=== PATIENT | female | born 1995 | race Caucasian/White ===

== ENCOUNTER 2024-03-30 21:03 | Outpatient (CLI) | payer OTHER, MEDICAID, SELFPAY ==
[2024-03-30 21:27] LABS: Appearance Urine UA CLEAR; Bilirubin Urine UA NEGATIVE (NEGATIVE); Color Urine UA YELLOW; Glucose Urine UA NEGATIVE (Negative); Ketones Urine UA 2+ (NEGATIVE); Leukocyte Esterase Urine UA 2+ (NEGATIVE); Nitrite Urine UA NEGATIVE (Negative); Occult Blood Urine UA NEGATIVE (Negative); Protein Urine UA NEGATIVE (Negative); Specific Gravity Urine UA <=1.005 (1.000-1.035); Urobilinogen Urine UA 0.2 E.U./dL (0.2)
[2024-03-30 21:31] LABS: pH Urine UA 5.5 (4.5-8.0)
[2024-03-30 21:36] LABS: Bacteria Urine Few (2-10); Culture Indicated Urine Specimen Cultured; RBC Urine None Seen (0-5/HPF); Squamous Epithelial Cell Urine 1-5 /HPF (0-5/HPF); Urine Volume 10mL (spun); WBC Urine 1-5/HPF (0-5/HPF)
== END 2024-03-30 22:20 | disposition home or self-care (01) ==
LOC: LABOR 21:06 → OB 04-01 10:27
PROVIDERS: Referring Provider Student in an Organized Health Care Education/Training Program; Visit Provider Student in an Organized Health Care Education/Training Program
DX: O26.893 Other specified pregnancy related conditions, third trimester (principal); R10.30 Lower abdominal pain, unspecified; M54.9 Dorsalgia, unspecified; Z3A.32 32 weeks gestation of pregnancy
CPT/HCPCS: 59025; 81001; 87086; G0378; G0379

== ENCOUNTER → 2024-04-21 08:38 | Outpatient (CLI) | payer OTHER, MEDICAID, SELFPAY ==
--- NOTE | 2024-04-21 08:40 | DI.US.S_ITS ---
PROCEDURE: US OB LIMITED INDICATIONS: OBESITY - GROWTH OUTSIDE/PRIOR DATING DATA: Last menstrual period (LMP): 08/06/2023. LMP-based estimated date of delivery (TRAVIS): 05/12/2024 First dating scan (date and location): 11/01/2023. Estimated date of delivery (TRAVIS) from first dating scan: 05/25/2024. TECHNIQUE: Real-time scanning was performed of the fetus, with image documentation. COMPARISON: Outside imaging not available for review. FINDINGS: A single living intrauterine gestation is present. Presentation: Vertex. Placenta: Placental position is posterior. Internal os area was not well seen. Amniotic fluid index: 28.2 cm, normal range is 5-24 cm. Single deepest vertical pocket is 9.6 cm. heart rate: 157 beats per minute. Maternal cervical canal: Not imaged Head circumference is 31.4 cm, 35 weeks and 2 days. BPD is 8.8 cm, 35 weeks and 3 days. Abdominal circumference is 31.4 cm, 35 weeks and 2 days Femur length is 6.4 cm, 33 weeks and 1 day Clinically estimated gestational age: 35 weeks and 1 day Estimated gestational age from initial scan: 34 weeks and 6 days EFW is 35th percentile, 2501 g. IMPRESSION: Living intrauterine gestation in vertex presentation. Overall EFW within normal limits at the 35th percentile using the provided outside clinical dating. Polyhydramnios, TALIB of 28.2. Please note that the prior outside ultrasound is not available for review. Dictated by: Jermaine Hicks M.D. on 04/21/2024 at 13:25 Approved by: Jermaine Hicks M.D. on 04/21/2024 at 13:29
== END ==
PROVIDERS: Referring Provider Student in an Organized Health Care Education/Training Program; Visit Provider Student in an Organized Health Care Education/Training Program
DX: O99.213 Obesity complicating pregnancy, third trimester (principal); O40.3XX0 Polyhydramnios, third trimester, not applicable or unspecified; Z3A.34 34 weeks gestation of pregnancy
CPT/HCPCS: 76815

== ENCOUNTER → 2024-05-01 13:25 | Outpatient (CLI) | payer OTHER, MEDICAID, SELFPAY ==
[2024-05-02 11:09] LABS: Strep Grp B PCR NEG for Grp B Strep
== END ==
PROVIDERS: Visit Provider Student in an Organized Health Care Education/Training Program
DX: Z34.03 Encounter for supervision of normal first pregnancy, third trimester (principal); Z3A.36 36 weeks gestation of pregnancy
CPT/HCPCS: 87653

== ENCOUNTER 2024-05-01 13:54 | Outpatient (CLI) | payer OTHER, MEDICAID, SELFPAY | END 2024-05-01 15:12 | disposition home or self-care (01) | LOC: LABOR 15:15 → OB 05-04 11:15 | PROVIDERS: Referring Provider Student in an Organized Health Care Education/Training Program; Visit Provider Student in an Organized Health Care Education/Training Program | DX: Z34.03 Encounter for supervision of normal first pregnancy, third trimester (principal); Z3A.36 36 weeks gestation of pregnancy | CPT/HCPCS: 59025; 87653; G0378; G0379 ==

== ENCOUNTER 2024-05-08 12:51 | Outpatient (CLI) | payer OTHER, MEDICAID, SELFPAY | END 2024-05-08 13:30 | disposition home or self-care (01) | LOC: LABOR 12:59 → OB 05-11 06:13 | PROVIDERS: Referring Provider Student in an Organized Health Care Education/Training Program; Visit Provider Student in an Organized Health Care Education/Training Program | DX: O77.0 Labor and delivery complicated by meconium in amniotic fluid (principal); Z3A.37 37 weeks gestation of pregnancy | CPT/HCPCS: 59025; G0378; G0379 ==

== ENCOUNTER 2024-05-15 15:15 | Outpatient (CLI) | payer OTHER, MEDICAID, SELFPAY ==
--- NOTE | 2024-05-15 15:25 | DI.US.S_ITS ---
PROCEDURE: US OB BIOPHYSICAL PROFILE INDICATIONS: POLYHYDRAMINOS OUTSIDE/PRIOR DATING DATA: Last menstrual period (LMP): 08/06/2023. LMP-based estimated date of delivery (TRAVIS): 05/12/2024. First dating scan (date and location): 11/01/2023. Estimated date of delivery (TRAVIS) from first dating scan: 05/25/2024. The calculations are made using the ultrasound TRAVIS of 05/25/2024. TECHNIQUE: Real-time scanning was performed of the fetus, with image documentation. Biophysical profile was also obtained. Endovaginal scanning: Not performed COMPARISON: [facility], , OB LIMITED, 04/21/2024, 8:45. FINDINGS: General: A single living intrauterine gestation is present. Presentation: Vertex. Placenta: Placental position is posterior. Placental edge is not well seen. Amniotic fluid index: 34 cm, normal range is 5-24 cm. Single deepest vertical pocket is 12.5 cm. heart rate: 149 beats per minute. Maternal cervical canal: Not well seen. Clinically estimated gestational age: 38 weeks, 4 days Biophysical profile: Tone: 2 points. Movement: 2 points. Respiration: 2 points. Largest pocket of fluid: 2 points. IMPRESSION: 1. [place]n living intrauterine at 38 weeks 4 days based on prior dating. 2. Polyhydramnios, worsened. TALIB measuring 34 cm. Largest pocket 1.5 cm. 3. Placenta and cervix are not well seen. 4. Normal biophysical profile. Score 8/8. We strive to produce accurate, complete, and clear reports of imaging services. To assist us in improving patient care, this report was composed using standard report templates and voice recognition software. Therefore, it may contain abnormal punctuation, insertions and/or omissions. Occasional wrong-word or sound-alike substitutions may occur. Though we review the report and make efforts to correct it, we do recommend that the report be read carefully in proper context to recognize any text inaccuracies. Dictated by: Surendra Chauhan M.D. on 05/15/2024 at 18:04 Approved by: Surendra Chauhan M.D. on 05/15/2024 at 18:14
== END 2024-05-15 17:10 | disposition home or self-care (01) ==
LOC: LABOR 15:17 → OB 05-18 11:45
PROVIDERS: Referring Provider Student in an Organized Health Care Education/Training Program; Visit Provider Student in an Organized Health Care Education/Training Program
DX: Z34.03 Encounter for supervision of normal first pregnancy, third trimester (principal); Z3A.38 38 weeks gestation of pregnancy
CPT/HCPCS: 59025; 59050; 76819; G0378; G0379

== ENCOUNTER 2024-05-22 19:55 | Inpatient (IN) | payer OTHER, MEDICAID, SELFPAY ==
--- NOTE | 2024-05-22 20:13 | P.HPOB_ITS ---
OB HPI Date/Time Date of admission: 05/22/24 Date Patient Seen: 05/22/24 Time Patient Seen: 20:17 History of Present Condition Chief complaint: Induction TRAVIS Calculator Estimated Delivery Date Method Current WG Current Estimate 05/25/24 Ultrasound #1 39w 4d Other Estimates 05/12/24 LMP (Certain) 41w 3d 05/24/24 Manual 39w 5d Estimated Gestational Age (weeks): 39+5 : 1 Para: 0 Narrative: Transferred care at 30 wks gestation from [place] Polyhydramnios Abnormal 1 hr GTT in [place], follow up 2 hr GTT was normal care: good care, initiated at week #, number of visits and pounds weight gain Dating criteria OB: LMP confirmed by 1st trimester US Ultrasounds: normal 1st trimester US and normal mid trimester US Abnormal ultrasound findings: Polyhydramnios Obstetrical complications: other (abnormal 1 hr GTT, normal 2 hr GTT (all of this in [place]) Polyhydramnios) Medical complications OB: none Indications Indication for induction OB: other (Polyhydamnios) Preadmission Labs Last OB Lab Results: Group B Strep (PCR) Neg for grp b strep 05/01/24 13:25 -: Chlamydia screen: negative, Gonorrhea screen: negative and Urine: negative Genetic Screens: Cell-free DNA: Normal (normal female) External Labs Blood type OB HPI: A (+) positive -: Antibody screen: negative, HBsAG: negative, HIV: negative, RPR/VDLR: negative, Chlamydia screen: negative, Gonorrhea screen: negative and Urine: negative -: Rubella: immune and Varicella: immune Genetic Screens: Cell-free DNA: Normal (normal female) [facility] Medical History (Updated 05/01/24 @ 17:07 by Ghazal Krishnamurthy DO) Chicken pox (~1998) Pneumonia (~1998) Surgical History (Updated 04/30/24 @ 21:04 by Etelvina Farias) Anesthesia [place] teeth extracted (~10/2021) Family History (Updated 03/17/24 @ 13:11 by Herlinda Marin RN) Father Hypertension Mother Optic nerve disease Generalized anxiety disorder Grandmother ALS (amyotrophic lateral sclerosis) Mental health disorder Grandfather Brain cancer Grandfather Alcoholism Brain aneurysm Grandmother Dementia Uncle Multiple sclerosis Uncle Parkinson's disease Uncle Colon cancer Family/Other Osteoporosis Social History marital status: number of children: 0 household members: spouse lives independently: Yes caregiver/support person: No housing: house pets and animals: Yes (dog) education level: college (associate's degree) occupational status: previously employed current occupational exposures/hazards: No special olivia needs: No travel history: recent ([place]) seatbelt use: always helmet use: Yes water heater temp set < 120 deg: Yes working smoke detector in home: Yes fire extinguisher in home: Yes carbon monox detector in home: Yes firearms in home: No do you feel safe at home: Yes Smoking Status: Never smoker second hand exposure: Yes ( vapes) alcohol intake: former (occasionally when not ) substance use type: does not use during the past year weight has: remained stable well-balanced diet: daily or most days daily servings fruits/ve-4 caffeine: Yes (occasional single cup coffee) Type(s) of exercise: walking Meds Home Medications and Allergies Home Medications Medication Instructions Recorded Confirmed Type vitamin-ferrous sulfate tab PO 03/17/24 05/15/24 History 27 mg iron-folic acid 0.8 mg tablet RSVPreF3 antigen-AS01E 0.5 ml IM ONCE #1 ea 04/17/24 05/15/24 Rx adjuvant(PF) 120 mcg/0.5 mL IM suspension, kit Allergies Allergy/AdvReac Type Severity Reaction Status Date / Time ibuprofen Allergy Intermediate Swelling Verified 05/15/24 14:59 of the Eye OB Exam Narrative Exam Narrative: Generally: Patient is sitting up in bed, no acute distress Lungs: Clear to auscultation bilaterally Cardiovascular: Regular rate and rhythm Fundal height: 43 cm Estimated weight: 8 lb Extremities: Trace edema Assessment and Plan Assessment and Plan Assessment and Plan narrative: Assessment: 29-year-old 1 para 0 at 39+4 weeks' gestation for induction of labor Favorable cervix Polyhydramnios Abnormal 1 hour glucose tolerance test, normal 2 hour glucose tolerance test (done in [place]) At risk for hemorrhage GBS negative Plan: Type and screen, repeat after 30 minutes AROM with copious light MSF Pitocin augmentation as needed Expected management to spontaneous vaginal delivery Precautions for hemorrhage Time-Based Coding :: [TOTAL MINUTES] spent with patient and on the chart (including review of chart, obtaining history, exam, reviewing outside data, placing orders, documenting exam and treatment plan, and counseling patient) on [DATE].
[2024-05-22 20:56] VITALS: BP 128/82
[2024-05-22 21:50] LABS: Add Manual Diff / Slide Review NO; Basophils Absolute Auto 0 /uL (0-100); Basophils Percent Auto 0.3 % (0-2); Eosinophils Absolute Auto 0 /uL (0-450); Eosinophils Percent Auto 0.7 % (2-4); Hematocrit 38.3 % (36-46); Lymphocytes Absolute Auto 1800 /uL (1100-4500); Mean Corpuscular HGB Conc 33.9 % (30-36); Mean Corpuscular Hemoglobin 28.9 PG (26-34); Mean Corpuscular Volume 85.2 fL (80-100); Monocytes Absolute Auto 700 /uL (0-900); Monocytes Percent Auto 9.6 % (3-14); Neutrophils Absolute Auto 4500 /uL (1500-7000); Neutrophils Percent Auto 63.4 % (50-75); Platelet Count 184 X10^3/uL (150-400); Red Blood Cell Count 4.49 X10^6/uL (4.0-5.2); Red Cell Distribution Width 13.6 % (11.6-14.8); White Blood Cell Count 7.1 X10^3/uL (4.5-11.0)
[2024-05-22] MEDS: LACTATED RINGERS 1,000 ML 100 ML IV (23:15)
[2024-05-22] MEDS: LACTATED RINGERS 500 ML 1000 ML IV (23:20)
--- NOTE | 2024-05-22 23:49 | PM.AN.REGBLK ---
Regional Block Pre-procedure Procedure: Continuous Lumbar Epidural for L&D Attending OB provider: Ghazal Krishnamurthy PMH/ROS narrative: 29yr old requesting epidural for labor pain. Plts WNL. Obesity. PSH/Anesthesia history narrative: wisdom teeth- rash on arms and legs and neck after surgery. Unsure of reason for rash. ASA Class: III Labs: Hct 38.3 % (36-46) 05/22/24 20:25 Plt Count 184 X10^3/uL (150-400) 05/22/24 20:25 Medications: Current Medications Generic Name Dose Route Start Last Admin Trade Name Freq PRN Reason Stop Dose Admin Calcium Carbonate 1,000 mg 05/22/24 21:13 Calcium Carbonate 500 Mg Tab PO Q2HR PRN Dyspepsia Carboprost Tromethamine 250 mcg 05/22/24 21:13 Carboprost 250 Mcg/Ml Ampul IM Q90M PRN Bleeding Fentanyl 100 mcg 05/22/24 21:13 Fentanyl 100 Mcg/2 Ml Inj IV Q1H PRN Pain, Severe (7-10) Oxytocin/Lactated Ringer's 30 unit in 500 mls @ 200 mls/hr 05/22/24 21:13 Oxytocin Premix IV CONT PRN Bleeding Protocol Tranexamic Acid 1,000 mg/ 100 mls @ 600 mls/hr 05/22/24 21:13 Sodium Chloride IV NOW PRN Bleeding Oxytocin/Lactated Ringer's 30 unit in 500 mls @ 2 mls/hr 05/22/24 21:15 Oxytocin Premix IV TITRATE TRUNG Protocol 2 MILLIUNIT/MIN Lactated Ringer's 1,000 mls @ 100 mls/hr 05/22/24 21:15 Lactated Ringers IV 05/23/24 07:14 CONT TRUNG Lidocaine HCl 20 ml 05/22/24 21:13 Lidocaine 1% 20 Ml INJ INTRA-OP PRN Post Delivery Methylergonovine Maleate 0.2 mg 05/22/24 21:13 Methylergonovine 0.2 Mg Tablet PO Q6HR PRN Heavy Bleeding Methylergonovine Maleate 0.2 mg 05/22/24 21:13 Methylergonovine 0.2 Mg/Ml Vial IM NOW PRN Bleeding Mineral Oil 30 ml 05/22/24 21:13 Mineral Oil 30 Ml Udc TOP PRN PRN Version Misoprostol 800 mcg 05/22/24 21:13 Misoprostol 200 Mcg Tablet VA NOW PRN Bleeding Misoprostol 400 mcg 05/22/24 21:13 Misoprostol 200 Mcg Tablet SL NOW PRN Bleeding Naloxone HCl 0.2 mg 05/22/24 21:13 Naloxone 0.4 Mg/Ml Vial IV Q2MIN PRN Opiate Reversal Ondansetron HCl 4 mg 05/22/24 21:13 Ondansetron 4 Mg/2 Ml Inj IV Q4HR PRN Nausea And Vomiting Oxytocin 10 unit 05/22/24 21:13 Oxytocin 10 Unit/Ml Vial IM NOW PRN Bleeding Allergies: Allergies Allergy/AdvReac Type Severity Reaction Status Date / Time ibuprofen Allergy Intermediate Swelling Verified 05/15/24 14:59 of the Eye --: L4-5 unable to find epidural space. Redirected needle x2 L3-4unable to find epidural space moved within space and epidural space found Procedure Insertion date: 05/22/24 Insertion time: 11:18 Prep/Local: 1% lidocaine (Chloroprep) Interspace: L4-5 and L3-4 Patient position: sitting Needle: 18 gauge Jefe Loss of resistance with: saline PHILLIP at (cm): 9 Catheter placed at SKIN (cm): 14 Catheter in SPACE (cm): 5 Insertion: Yes CSF, Yes Blood, Yes Paresthesia with insertion and Yes Paresthesia with injection Initial Medications TEST DOSE time: 11:18 BOLUS DOSE time: 11:20 BOLUS DOSE (mL): 3 BOLUS DOSE med: 0.25% bupivacaine Infusion INFUSION: 0.125% bupivacaine and with fentanyl 2 mcg/mL Initial rate (mL/hr): 7 Subsequent interventions: bolus @1131 5cc 0.25% marcaine bolus @0240 5cc 2% lidocaine Post-procedure Anesthesia date START: 05/22/24 Anesthesia time START: 11:02 Anesthesia date END: 05/23/24 Anesthesia time END: 04:50 Post-procedure Anesthesia Assessment: Yes CV function: HR/BP stable, Yes Resp function: RR/sat/airway adequate, Yes Post-op hydration adequate, Yes Pain control adequate, Yes Nausea & vomiting absent, Yes Temperature > 36 C and Yes Mental status appropriate
--- NOTE | 2024-05-23 00:12 | P.PNOB_ITS ---
Date/Time Date Patient Seen: 05/23/24 Time Patient Seen: 00:13 Pain Control Pain control: epidural Pelvic Exam Dilation (cm): 8 Effacement (%): 90 station: 0 Amniotic membrane status: Ruptured Contractions Monitor mode: External Contraction pattern: Irregular Status status: Category ll Heart Rate Baseline: 145 Monitor Accelerations: Present Monitor Decelerations: Episodic and Prolonged Monitor Variability: Moderate Assessment and Plan Assessment: active labor Plan: continuous present management Comments: 29yo at 39+5wks admitted for IOL due to moderate polyhydramnios, comfort able with epidural in place. Called in by RN due to 2 decels lasting 30-60 sec with ruth to the 80s, with recovery to baseline. SVE upon my arrival is as above. -continue expectant management -anticipate
[2024-05-23] MEDS: OXYTOCIN PREMIX 30 UNIT/500 ML PLAST..BAG 95 UNIT IV (04:55)
--- NOTE | 2024-05-23 05:27 | P.PCNOB_ITS ---
Events: Polyhydramnios Labor & Delivery Delivery date: 05/23/24 Delivery Time: 04:50 Delivery augmentation: rupture of membranes Delivery monitor: external FHT and external uterine Route of delivery: L&D Laceration Description: Perineal - 2nd Degree Delivery repair: vicryl Quantitative Blood Loss: 350 Anesthesia Type: Epidural Complications: none Narrative: The patient progressed to C/C/+2 with epidural anesthesia. After approximately 2hrs of maternal pushing efforts, the delivered in OA position and restituted LOT. The anterior shoulder delivered with gentle downward pressure. The posterior shoulder and rest of body delivered with ease. Nuchal cord x1 was delivered through, then reduced at the perineum. The cord was doubly clamped and cut after a 60sec delay with the placed on maternal abdomen. The placenta delivered spontaneously and was intact with a 3-vessel cord. The fundus was noted to be firm with bimanual massage and pitocin. Inspection of the cervix, vagina, and perineum was notable for a 2nd degree perineal laceration. Repair was performed using 3-0 Vicryl in a running, unlocked fashion. Skin was reapproximated in a running, subcuticular fashion. At the end of the repair, all tissues noted to be hemostatic. All sponges were removed from the vagina. The patient tolerated delivery well and remained in the labor room with the infant at the bedside. [place] Baby 1: gender: Female Presentation: vertex Position: Left Occiput Anterior Placenta delivery description: Spontaneous Cord Vessel Description: 3 Vessels score (1 min): 8 score (5 min): 10 weight: 6 lb 13.067 oz Plan for aftercare: Routine care
[2024-05-23] MEDS: ACETAMINOPHEN 325 MG TABLET 650 MG PO ×2 (08:00→16:58)
[2024-05-23] MEDS: DERMOPLAST SPRAY 20% 60 ML 1 SPRAY TOP (08:00)
[2024-05-23] MEDS: WITCH HAZEL/GLYCERIN PADS 1 EACH TOP (08:00)
[2024-05-24] MEDS: PRENATAL VIT,CALC/IRON/FOLIC 1 TABLET 1 TAB PO (08:34)
[2024-05-24] MEDS: ACETAMINOPHEN 325 MG TABLET 650 MG PO (08:34)
[2024-05-24] MEDS: DOCUSATE 100 MG CAPSULE PO (08:34)
--- NOTE | 2024-05-24 10:03 | P.DS_ITS ---
Discharge Providers Provider Date of admission: 05/22/24 19:55 Discharge Date: 05/24/24 Primary care physician: Doctor Bhavik MD Consults: 05/22/24 21:14 Consult to Anesthesiology Urgent Comment: Consulting Provider: Anesthesiologist Reason for consultation: Epidural 05/24/24 05:24 Consult to Associate Professor Of Literacy Routine Comment: Discharge provider: Ghazal Krishnamurthy DO Summary Hospital Course Date Patient Seen: 05/24/24 Time Patient Seen: 10:06 Diagnoses: Term gestation at 39+4wks Polyhydramnios Obesity Hospital Course: 29yo [id number] admitted at 39+4wks for induction of labor due to moderate polyhydramnios. She progressed to an uncomplicated spontaneous vaginal delivery, productive of a viable female . Her course was uncomplicated. On day #1, she was ambulating, tolerating regular diet, voiding spontaneously with minimal lochia. Her pain was well controlled with oral medications, thus she was discharged to home on day #1. Peripartum Data Infant Delivery Method: Natural Vaginal Laceration Description: Perineal - 2nd Degree Procedures: External monitoring Epidural anesthesia Vaginal delivery Obstetrical laceration repair complications: none 1: Gender: Female Disposition of : home Discharge Diagnosis (1) Polyhydramnios in aranda in third trimester: Status: Acute (2) Abnormal O'Polo glucose challenge test, antepartum: Status: Acute (3) Obesity affecting : Status: Acute (4) Vaginal delivery: Status: Acute (5) 39 weeks gestation of : Status: Acute Status at Discharge Cognitive/behavioral status at discharge: oriented Functional status at discharge: independent ambulation Overall status at discharge: patient is progressing back to baseline Time Spent with Patient Time attestation: Total time spent providing and/or coordinating discharge services: Time spent: Less than 30 minutes Objective Labs 05/22/24 20:25 Exam Vital Signs (past 8 hours): vitals reviewed in OBIX, within normal parameters Const General: cooperative, healthy appearing, comfortable and No acute distress Resp Effort & Inspection: normal respiratory effort GI Inspection: normal to inspection Other: fundus firm and nontender Skin General: no rashes or lesions noted Neuro General: patient alert and patient awake Extrem General: normal to inspection and no calf tenderness Psych Mood: congruent mood Affect: normal affect Discharge Plan Discharge Plan Patient Disposition: Home Provider Discharge Comment: Take acetaminophen 650mg every 6hrs as needed for pain. Avoid placing anything in the vagina for 6 weeks. Discharge orders & Medications Prescriptions: Continued vit-ferrous sulfat-FA 27 mg iron- 0.8 mg tablet PO Discontinued RSVPreF3 antigen-AS01E (PF) 120 mcg/0.5 mL suspension for reconstitution 0.5 ml IM ONCE Qty: 1 0RF Follow up/Referrals: Ghazal Krishnamurthy DO [Physician] - (please call the office tomorrow to schedule your 2 week telehealth and 6 week appts w/ Dr. Krishnamurthy) Diet/Activity/Treatments Diet: Diet as Tolerated Activity: As tolerated Skin/Wound/Dressing Care Report to your healthcare provider any signs of infection, such as:: chills, fever, increased pain and unusual drainage Visit Report/Discharge Packet Instructions: DI for Labor and Delivery, Vaginal Stand Alone Forms: Discharge: Care, Patient Portal/API, Stroke Signs & Symptoms Discharge Data Primary Care Provider: Miscellaneous,Doctor
== END 2024-05-24 10:14 | disposition home or self-care (01) | DRG 560 ==
PROVIDERS: Admitting Provider Student in an Organized Health Care Education/Training Program; Referring Provider Student in an Organized Health Care Education/Training Program; Visit Provider Student in an Organized Health Care Education/Training Program
DX: O40.3XX0 Polyhydramnios, third trimester, not applicable or unspecified (principal); O70.1 Second degree perineal laceration during delivery; Z3A.39 39 weeks gestation of pregnancy; Z37.0 Single live birth; O76 Abnormality in fetal heart rate and rhythm complicating labor and delivery; O99.214 Obesity complicating childbirth
CPT/HCPCS: 36415; 59050; 59409; 85025; 86850; 86900; 86901; G0379; J2590

== ENCOUNTER 2024-08-03 20:41 | Emergency (ER) | payer MEDICAID, SELFPAY ==
[2024-08-03 20:56] VITALS: BP 109/68; PULSE 67; RESP 24; TEMP 35.8; O2SAT 99; BMI 41.1
--- NOTE | 2024-08-03 21:21 | DI.US.S_ITS ---
PROCEDURE: US ABDOMEN LIMITED INDICATIONS: RIGHT UPPER QUADRANT PAIN TECHNIQUE: Real-time focused scanning was performed of the abdomen, with image documentation. COMPARISON: None FINDINGS: Liver measures 15 cm. Cholelithiasis without sonographic Desir sign. No pathologic wall thickening. CBD within normal limits at 5 mm. Partially visualized pancreas is unremarkable. No pathologic free fluid. IMPRESSION: Cholelithiasis without sonographic Desir sign. Dictated by: Jermaine Hicks M.D. on 08/03/2024 at 22:50 Approved by: Jermaine Hicks M.D. on 08/03/2024 at 22:50
[2024-08-03 21:26] LABS: Add Manual Diff / Slide Review NO; Basophils Absolute Auto 100 /uL (0-100); Basophils Percent Auto 0.8 % (0-2); Eosinophils Absolute Auto 0 /uL (0-450); Eosinophils Percent Auto 0.3 % (2-4); Hematocrit 43.3 % (36-46); Hemoglobin 14.4 g/dL (12.0-16.0); Lymphocytes Absolute Auto 1300 /uL (1100-4500); Lymphocytes Percent Auto 10.7 % (25-40); Mean Corpuscular HGB Conc 33.2 % (30-36); Mean Corpuscular Hemoglobin 28.3 PG (26-34); Mean Corpuscular Volume 85.3 fL (80-100); Monocytes Absolute Auto 700 /uL (0-900); Monocytes Percent Auto 5.5 % (3-14); Neutrophils Absolute Auto 10100 /uL (1500-7000); Neutrophils Percent Auto 82.7 % (50-75); Platelet Count 224 X10^3/uL (150-400); Red Blood Cell Count 5.07 X10^6/uL (4.0-5.2); Red Cell Distribution Width 14.3 % (11.6-14.8); White Blood Cell Count 12.2 X10^3/uL (4.5-11.0)
[2024-08-03] MEDS: ONDANSETRON 4 MG/2 ML INJ IV (21:31)
[2024-08-03] MEDS: ACETAMINOPHEN IV 1,000 MG/100 ML VIAL 400 MG IV (21:32)
[2024-08-03 21:37] LABS: Alanine Aminotransferase 41 IU/L (<35); Albumin 4.5 g/dL (3.5-5.0); Albumin Globulin Ratio 1.4 (1.0-2.8); Alkaline Phosphatase 87 U/L (38-126); Aspartate Aminotransferase 100 IU/L (14-36); BUN Creatinine Ratio 20.3 (6-22); Bilirubin Total 0.9 mg/dL (0.2-1.3); Blood Urea Nitrogen 15 mg/dL (7-17); Carbon Dioxide 24 mmol/L (22-32); Chloride 106 mmol/L (98-107); Estimated Glomerular Filt Rate > 60 mL/min (>60); Globulin 3.3 g/dL (1.7-4.1); Glucose 156 mg/dL (70-100); HEMOLYSIS < 15 (0-50); Lipase 112 U/L (23-300); Potassium 3.4 mmol/L (3.4-5.1); Sodium 139 mmol/L (137-145); Total Protein 7.8 g/dL (6.3-8.2)
[2024-08-03 21:44] LABS: Appearance Urine UA CLEAR; Bilirubin Urine UA NEGATIVE (NEGATIVE); Color Urine UA YELLOW; Glucose Urine UA NEGATIVE (Negative); Ketones Urine UA TRACE (NEGATIVE); Leukocyte Esterase Urine UA NEGATIVE (NEGATIVE); Nitrite Urine UA NEGATIVE (Negative); Occult Blood Urine UA 3+ (Negative); Protein Urine UA TRACE (Negative); Specific Gravity Urine UA >=1.030 (1.000-1.035); Urobilinogen Urine UA 0.2 E.U./dL (0.2)
[2024-08-03 21:50] LABS: Ictotest Urine Negative (Negative)
[2024-08-03 21:51] LABS: Bacteria Urine Few (2-10); Culture Indicated Urine Cult Not Indicated; Mucus Urine 1+ (Negative); RBC Urine 1-5/HPF (0-5/HPF); Squamous Epithelial Cell Urine 0-1 /HPF (0-5/HPF); Urine Volume 10mL (spun); WBC Urine 0-1/HPF (0-5/HPF)
[2024-08-04 03:36] VITALS: BP 114/55; PULSE 58; RESP 16; TEMP 36.9; O2SAT 100
--- NOTE | 2024-08-04 04:02 | ED.ABDPAIN ---
HPI - Abdominal Pain General Chief Complaint: Abdominal Pain Stated Complaint: Severe R Side Abd Pain Time Seen by Provider: 08/04/24 03:56 Source: patient Mode of arrival: Ambulatory History of Present Illness HPI narrative: Patient is a 29-year-old female who presents today with sudden onset of right upper quadrant pain nausea vomiting. No fever or chills. She has now been here for number of hours has received pain medicine and anti nausea medication overall feeling better. Denies any chest pain or shortness of breath. Related Data Home Medications Medication Instructions Recorded Confirmed vitamin-ferrous sulfate tab PO 03/17/24 07/03/24 27 mg iron-folic acid 0.8 mg tablet Previous Rx's Medication Instructions Recorded cefdinir 300 mg capsule 300 mg PO Q12H #20 caps 08/04/24 hydrocodone 5 mg-acetaminophen 325 1 tab PO Q6H PRN pain #10 tabs 08/04/24 mg tablet ondansetron 4 mg disintegrating 4 mg PO Q8H PRN nausea and 08/04/24 tablet vomiting #10 tabs Allergies Allergy/AdvReac Type Severity Reaction Status Date / Time ibuprofen Allergy Intermediate Swelling Verified 07/03/24 14:40 of the Eye Patient History Medical History (Updated 08/04/24 @ 04:26 by Balbina Duarte DO) Vaginal delivery (~04/2024) Chicken pox (~1998) Pneumonia (~1998) Surgical History Anesthesia [place] teeth extracted (~10/2021) Family History (Updated 03/17/24 @ 13:11 by Herlinda Marin RN) Father Hypertension Mother Optic nerve disease Generalized anxiety disorder Grandmother ALS (amyotrophic lateral sclerosis) Mental health disorder Grandfather Brain cancer Grandfather Alcoholism Brain aneurysm Grandmother Dementia Uncle Multiple sclerosis Uncle Parkinson's disease Uncle Colon cancer Family/Other Osteoporosis Social History marital status: number of children: 0 household members: spouse lives independently: Yes caregiver/support person: No housing: house pets and animals: Yes (dog) education level: college (associate's degree) occupational status: previously employed current occupational exposures/hazards: No special olivia needs: No travel history: recent ([place]) seatbelt use: always helmet use: Yes water heater temp set < 120 deg: Yes working smoke detector in home: Yes fire extinguisher in home: Yes carbon monox detector in home: Yes firearms in home: No do you feel safe at home: Yes Smoking Status: Never smoker second hand exposure: Yes ( vapes) alcohol intake: former (occasionally when not ) substance use type: does not use during the past year weight has: remained stable well-balanced diet: daily or most days daily servings fruits/ve-4 caffeine: Yes (occasional single cup coffee) Type(s) of exercise: walking Smoking Status: Never smoker Exam Initial Vital Signs Initial Vital Signs: Vital Signs Temperature 96.5 F L 08/03/24 20:56 Pulse Rate 67 08/03/24 20:56 Respiratory Rate 24 08/03/24 20:56 Blood Pressure 109/68 08/03/24 20:56 Pulse Oximetry 99 08/03/24 20:56 Oxygen Delivery Method Room Air 08/03/24 20:56 GENERAL: Sleeping easily arousable 29-year-old female BMI 41 HEENT: Head atraumatic,EOMI, pupils reactive, face symmetric, [moist] mucous membranes CARDIOVASCULAR: Regular rate and rhythm without murmurs, rubs or gallops. RESPIRATORY: Breath sounds equal bilaterally, no wheezes rales or rhonchi. ABDOMEN: Soft, no tenderness in right upper quadrant or epigastric region no distention EXTREMITIES: Normal range of motion, no clubbing or edema. Neurovascularly intact NEUROLOGICAL: Alert and oriented x4.Normal gait and speech. Cranial nerves II through XII grossly intact. SKIN: Warm, dry, no laceration, no petechiae, no rashes or lesions. Course Orders Ordered: Discontinued Medications Acetaminophen (Ofirmev) 1,000 mg in 100 mls @ 400 mls/hr IV NOW ONE Stop: 08/03/24 21:35 Last Infusion: 08/03/24 21:52 Dose: Infused Documented By: Admin: 08/03/24 21:32 Dose: 400 mls/hr Documented By: MAGALY Morphine Sulfate (Morphine 2 Mg/Ml Inj) 2 mg IV NOW ONE Stop: 08/04/24 01:30 Ondansetron HCl (Ondansetron 4 Mg/2 Ml Inj) 4 mg IV NOW PRN PRN Reason: Nausea And Vomiting Ondansetron HCl (Ondansetron 4 Mg Odt) 4 mg PO NOW PRN PRN Reason: Nausea And Vomiting Ondansetron HCl (Ondansetron 4 Mg/2 Ml Inj) 4 mg IV NOW ONE Stop: 08/03/24 21:22 Last Admin: 08/03/24 21:31 Dose: 4 mg Documented By: MAGALY Vital Signs Vital signs: Vital Signs - 8 hr 08/04/24 03:36 08/04/24 04:42 Temperature 98.4 F Pulse Rate 58 L 101 H Respiratory Rate 16 18 Blood Pressure 114/55 L 122/80 Pulse Oximetry 100 97 Oxygen Delivery Method Room Air Room Air MDM - Abdominal Pain Lab Data 08/03/24 21:16 08/03/24 21:16 Labs: Lab Results 08/03/24 08/03/24 Range/Units 21:06 21:16 WBC 12.2 H (4.5-11.0) X10^3/uL RBC 5.07 (4.0-5.2) X10^6/uL Hgb 14.4 (12.0-16.0) g/dL Hct 43.3 (36-46) % MCV 85.3 (80-100) fL MCH 28.3 (26-34) PG MCHC 33.2 (30-36) % RDW 14.3 (11.6-14.8) % Plt Count 224 (150-400) X10^3/uL Neut % (Auto) 82.7 H (50-75) % Lymph % (Auto) 10.7 L (25-40) % [place] % (Auto) 5.5 (3-14) % Eos % (Auto) 0.3 L (2-4) % Baso % (Auto) 0.8 (0-2) % Neut # (Auto) 39059 H (6648-2024) /uL Lymph # (Auto) 1300 (9591-4250) /uL [place] # (Auto) 700 (0-900) /uL Eos # (Auto) 0 (0-450) /uL Baso # (Auto) 100 (0-100) /uL Sodium 139 (137-145) mmol/L Potassium 3.4 (3.4-5.1) mmol/L Chloride 106 (98-107) mmol/L Carbon Dioxide 24 (22-32) mmol/L BUN 15 (7-17) mg/dL Creatinine 0.74 (0.52-1.04) mg/dL Estimated GFR > 60 (>60) mL/min BUN/Creatinine Ratio 20.3 (6-22) Glucose 156 H (70-100) mg/dL Calcium 9.0 (8.4-10.2) mg/dL Total Bilirubin 0.9 (0.2-1.3) mg/dL AST 100 H (14-36) IU/L ALT 41 H (<35) IU/L Alkaline Phosphatase 87 (38-126) U/L Total Protein 7.8 (6.3-8.2) g/dL Albumin 4.5 (3.5-5.0) g/dL Globulin 3.3 (1.7-4.1) g/dL Albumin/Globulin Ratio 1.4 (1.0-2.8) Lipase 112 (23-300) U/L Urine Color Yellow Urine Appearance Clear Urine pH 6.0 (4.5-8.0) Ur Specific Talent >=1.030 H (1.000-1.035) Urine Protein Trace H (Negative) Urine Glucose (UA) Negative (Negative) g/dL Urine Ketones Trace H (NEGATIVE) Urine Occult Blood 3+ H (Negative) Urine Nitrate Negative (Negative) Urine Bilirubin Negative (NEGATIVE) Ur Bilirubin Confirm Negative (Negative) Urine Urobilinogen 0.2 (0.2) E.U./dL Ur Leukocyte Esterase Negative (NEGATIVE) Urine RBC 1-5/hpf (0-5/HPF) Urine WBC 0-1/hpf (0-5/HPF) Ur Squamous Epith Cells 0-1 /hpf (0-5/HPF) Urine Bacteria Few (2-10) H (None) Urine Mucus 1+ H (Negative) Ur Culture Indicated? Cult not indicated Vol Urine Centrifuged 10ml (spun) Point of care testing: Point of Care Testing Test Results Negative Urine Dip Bedside Urine Glucose Negative Bedside Urine Bilirubin + 1 Bedside Urine Ketone - Negative Urine Specific Talent 1.030 Bedside Urine Occult Blood +++ Bedside Urine pH 6.0 Bedside Urine Protein +/- 15 Bedside Urine Urobilinogen - Negative Bedside Urine Nitrite - Negative Bedside Urine Leukocytes - Negative Esterase Imaging Data US - abdomen: Radiologist's Impression: PROCEDURE: US ABDOMEN LIMITED INDICATIONS: RIGHT UPPER QUADRANT PAIN TECHNIQUE: Real-time focused scanning was performed of the abdomen, with image documentation. COMPARISON: None FINDINGS: Liver measures 15 cm. Cholelithiasis without sonographic Desir sign. No pathologic wall thickening. CBD within normal limits at 5 mm. Partially visualized pancreas is unremarkable. No pathologic free fluid. IMPRESSION: Cholelithiasis without sonographic Desir sign. Dictated by: Jermaine Hicks M.D. on 08/03/2024 at 22:50 MDM Narrative Medical decision making narrative: Patient 29-year-old female who presents today with right upper quadrant pain nausea vomiting. Concern for cholelithiasis. She is on have cholelithiasis on ultrasound was out wall thickening or pericholecystic fluid. No dilated common bile duct. Bilirubin is within normal limits she does have an elevated AST of 100 and ALT of fully 1 no priors to compare. She was mild leukocytosis of 12 but is afebrile. Pain is controlled with morphine Tylenol and Zofran. 0400 Dr. Ramey, on-call surgery ok to follow up outpatient Patient's pain is controlled. She reports that she actually had an episode like this about a month ago did not last quite as long. Today she says she did have fried food prior to her attack today. If you are feeling suicidal or having suicidal thoughts: Call: Suicide Hotline: 678 Visit: www.[employer].org Text: 055526 patient does have some gallbladder disease she has cholelithiasis. Liver enzymes are mildly elevated but has a normal bilirubin pain is resolved ultrasound does not show evidence of acute cholecystitis without thickening or pericholecystic fluid. At this time surgery recommends outpatient follow-up. Patient is given a antibiotics due to leukocytosis and pain medication. Discharge Plan Departure Patient Disposition: Home Clinical Impression: Cholelithiasis Instructions: Gallstones Activity Restrictions/Additional Instructions: *You have been diagnosed with gallstones *What to do: At this time you will need to have your gallbladder removed. You will need to call and follow up with General surgery *Continue to take medications as directed Zofran 4 mg every 8 hours for nausea or vomiting Cefdinir 300 mg twice a day for 7 days [place] 1 tablet every 4-6 hours if needed for severe pain *Follow up with your primary care provider in 2-3 days or call [phone] *Return to ER if you should have increasing pain fever vomiting or any new, worsening or concerning symptoms CONTROLLED SUBSTANCE DISCHARGE (Narcotoic/benzodiazepine/Flexeril/Phenergan) 1. You have been prescribed narcotic medications, it does have acetaminophen/Tylenol/paracetamol in it, DO NOT TAKE MORE THAN 4,00mg in 24 hours of Tylenol. TRAMADOL DOES NOT CONTAIN TYLENOL 2. Please understand that we cannot provide further refills of narcotics, benzodiazepines or controlled substances through the ED and her pain management will need to be through your provider. 3. While on these medications you cannot drive or operate heavy machinery. 4. You cannot sign legal documents or perform any duties such as this. 5. As long as you're taking opiate pain medications he should also be taking a stool softener such as Colace, Dulcolax, MiraLAX or prune juice, to help avoid constipation. Prescriptions: New hydrocodone-acetaminophen 5-325 mg tablet 1 tab PO Q6H PRN (Reason: pain) Qty: 10 0RF ondansetron 4 mg tablet,disintegrating 4 mg PO Q8H PRN (Reason: nausea and vomiting) Qty: 10 0RF cefdinir 300 mg capsule 300 mg PO Q12H Qty: 20 0RF No Action vit-ferrous sulfat-FA 27 mg iron- 0.8 mg tablet PO Referrals: [facility] [Provider Group] Miscellaneous,Doctor, MD [Primary Care Provider] - Stand Alone Forms: Patient Portal/API/Survey
[2024-08-04 04:42] VITALS: BP 122/80; PULSE 101; RESP 18; O2SAT 97
== END 2024-08-04 04:47 | disposition home or self-care (01) ==
PROVIDERS: Emergency Provider Emergency Medicine
DX: K80.20 Calculus of gallbladder without cholecystitis without obstruction (principal)
CPT/HCPCS: 36415; 76705; 80053; 81001; 81003; 81025; 83690; 85025; 96365; 96375; 99284; J0131; J2405

== ENCOUNTER → 2024-08-12 12:38 | Outpatient (CLI) | payer MEDICAID, SELFPAY ==
[2024-08-12 19:25] LABS: Add Manual Diff / Slide Review NO; Basophils Absolute Auto 100 /uL (0-100); Basophils Percent Auto 1.5 % (0-2); Eosinophils Absolute Auto 100 /uL (0-450); Eosinophils Percent Auto 1.1 % (2-4); Hematocrit 43.9 % (36-46); Hemoglobin 14.8 g/dL (12.0-16.0); Lymphocytes Absolute Auto 1700 /uL (1100-4500); Lymphocytes Percent Auto 28.8 % (25-40); Mean Corpuscular HGB Conc 33.6 % (30-36); Mean Corpuscular Hemoglobin 28.9 PG (26-34); Mean Corpuscular Volume 85.8 fL (80-100); Monocytes Absolute Auto 400 /uL (0-900); Monocytes Percent Auto 7.7 % (3-14); Neutrophils Absolute Auto 3500 /uL (1500-7000); Neutrophils Percent Auto 60.9 % (50-75); Platelet Count 256 X10^3/uL (150-400); Red Blood Cell Count 5.11 X10^6/uL (4.0-5.2); Red Cell Distribution Width 13.8 % (11.6-14.8); White Blood Cell Count 5.7 X10^3/uL (4.5-11.0)
[2024-08-12 19:39] LABS: Alanine Aminotransferase 42 IU/L (<35); Albumin 4.4 g/dL (3.5-5.0); Albumin Globulin Ratio 1.6 (1.0-2.8); Alkaline Phosphatase 76 U/L (38-126); Amylase 48 U/L (30-110); Aspartate Aminotransferase 23 IU/L (14-36); BUN Creatinine Ratio 16.5 (6-22); Bilirubin Total 0.4 mg/dL (0.2-1.3); Blood Urea Nitrogen 13 mg/dL (7-17); Calcium 9.2 mg/dL (8.4-10.2); Carbon Dioxide 28 mmol/L (22-32); Chloride 104 mmol/L (98-107); Estimated Glomerular Filt Rate > 60 mL/min (>60); Globulin 2.8 g/dL (1.7-4.1); Glucose 92 mg/dL (70-100); HEMOLYSIS < 15 (0-50); Lipase 65 U/L (23-300); Potassium 4.5 mmol/L (3.4-5.1); Sodium 140 mmol/L (137-145); Total Protein 7.2 g/dL (6.3-8.2)
== END ==
PROVIDERS: Visit Provider Physician Assistant Medical
DX: K82.9 Disease of gallbladder, unspecified (principal); K80.20 Calculus of gallbladder without cholecystitis without obstruction
CPT/HCPCS: 80053; 82150; 83690; 85025